=== PATIENT | female | born 1950 | race Caucasian/White ===

== ENCOUNTER 2017-12-16 11:04 | Day surgery (SDC) | payer BC ==
[~2017-12-16 11:04] MED LIST: Acetaminophen TAB* 325 MG PO PRN; Buffered Lidocaine 0.9% SYRIN* 5 ML/SYR SYRINGE INTRADERM ONE
[2017-12-16] MEDS ORDERED: fentaNYL* 50 MCG/ML 2 ML VIAL (100 MCG VIAL) ONE (11:32)
[2017-12-16] MEDS ORDERED: Midazolam* 1 MG/ML 2 ML VIAL (2 MG) ONE (11:33)
[2017-12-16 12:32] VITALS: BP 99/55
[2017-12-16] MEDS ORDERED: Cyclopentolate 1% OPTH.SOL* 2 ML BTL ONE (12:55)
[2017-12-16] MEDS ORDERED: Lidocaine 1%* 5 ML VIAL ONE (12:55)
[2017-12-16] MEDS ORDERED: Phenylephrine 2.5% OPTH.SOL* 2 ML BTL ONE (12:56)
[2017-12-16] MEDS ORDERED: Ketorolac 0.5% OPHTH (NF) 0.5 % 5 ML BTL ONE (12:56)
[2017-12-16] MEDS ORDERED: Neomycin/Polymy/Dex OPHTH.OIN* 3.5 GM ONE (12:56)
[2017-12-16] MEDS ORDERED: Tropicamide 1% OPTH.SOL* BTL ONE (12:56)
[2017-12-16] MEDS ORDERED: Tetracaine 0.5% OPTH.SOL 4 ML* 1 DROP BTL ONE (12:56)
--- NOTE | 2017-12-16 21:49 | OP ---
DATE OF OPERATION: 12/16/17 [facility] DATE OF : 50 SURGEON: Dr. Chaz Feldman. ASSOCIATE DIRECTOR OF DEVELOPMENT: None. ANESTHESIA: Topical with intravenous sedation. PRE-OP DIAGNOSIS: Cataract, right eye. POST-OP DIAGNOSIS: Cataract, right eye. OPERATIVE PROCEDURE: Phacoemulsification and cataract extraction with posterior chamber intraocular lens implant, right eye. COMPLICATIONS: None. BLOOD LOSS: None. DESCRIPTION OF PROCEDURE: The patient was brought to the operating room and received a small amount of intravenous sedation. A drop of Tetracaine was placed in her right eye. She was prepped and draped in the usual sterile fashion for ophthalmic surgery and attention was directed to the right eye where a speculum was placed. A paracentesis was created at the 11 o'clock position and 0.1 cc of 1 percent preservative-free Lidocaine was injected into the anterior chamber followed by DisCoVisc. The eye was digitally stabilized while a 2.75 mm keratome was used to create a triplanar clear corneal incision at the 9 o'clock position. A continuous curvilinear capsulorrhexis was created with a cystotome and Utrata forceps. BSS on a cannula was used to hydrodissect the lens from the capsule. Phacoemulsification was performed in a divide-and- conquer technique to create four fragments which were removed. Residual cortical material was removed with irrigation and aspiration. DisCoVisc was used to inflate the capsular bag and an AU00T0 15.5 diopter lens was folded and inserted into the capsular bag. DisCoVisc was removed using irrigation and aspiration. BSS on a cannula was used to hydrate the corneal stroma and seal the wound. At the end of the case the pupil was round and the lens was centered. The eye was of normal pressure and the wound was water tight. The speculum was removed and topical Maxitrol ointment was placed on the surface of the eye. The eye was closed, patched and shielded and the patient was sent to the recovery room in stable condition with post operative instructions and follow-up appointment given. [id number]/[facility] #: [id number] MAXIMILIANO
== END 2017-12-16 12:44 | disposition home or self-care (01) ==
LOC: OREAST 11:04
PROVIDERS: ATTEND Ophthalmology
DX: H25.11 Age-related nuclear cataract, right eye (principal); E78.5 Hyperlipidemia, unspecified; R42 Dizziness and giddiness; F41.9 Anxiety disorder, unspecified
CPT/HCPCS: A9270-GY; J2250; J3010; V2632

== ENCOUNTER 2017-12-23 07:12 | Day surgery (SDC) | payer BC ==
[2017-12-23] MEDS ORDERED: Midazolam* 1 MG/ML 2 ML VIAL (2 MG) ONE (08:12)
[2017-12-23] MEDS ORDERED: fentaNYL* 50 MCG/ML 2 ML VIAL (100 MCG VIAL) ONE (08:12)
[2017-12-23 09:01] VITALS: BP 101/52
--- NOTE | 2017-12-23 10:16 | OP ---
DATE OF OPERATION: 12/23/17 [facility] DATE OF : 50 SURGEON: Dr. Chaz Feldman. TRANSFORMATION CONSULTANT: None. ANESTHESIA: Topical with intravenous sedation. PRE-OP DIAGNOSIS: Cataract, left eye. POST-OP DIAGNOSIS: Cataract, left eye. OPERATIVE PROCEDURE: Phacoemulsification and cataract extraction with posterior chamber intraocular lens implant, left eye. COMPLICATIONS: None. BLOOD LOSS: None. DESCRIPTION OF PROCEDURE: The patient was brought to the operating room and received a small amount of intravenous sedation. A drop of Tetracaine was placed in her left eye. She was prepped and draped in the usual sterile fashion for ophthalmic surgery and attention was directed to the left eye where a speculum was placed. A paracentesis was created at the 5 o'clock position and 0.1 cc of 1 percent preservative-free Lidocaine was injected into the anterior chamber followed by DisCoVisc. The eye was digitally stabilized while a 2.75 mm keratome was used to create a triplanar clear corneal incision at the 3 o'clock position. A continuous curvilinear capsulorrhexis was created with a cystotome and Utrata forceps. BSS on a cannula was used to hydrodissect the lens from the capsule. Phacoemulsification was performed in a divide-and- conquer technique to create four fragments which were removed. Residual cortical material was removed with irrigation and aspiration. DisCoVisc was used to inflate the capsular bag and an AU00T0 15.0 diopter lens was folded and inserted into the capsular bag. DisCoVisc was removed using irrigation and aspiration. BSS on a cannula was used to hydrate the corneal stroma and seal the wound. At the end of the case the pupil was round and the lens was centered. The eye was of normal pressure and the wound was water tight. The speculum was removed and topical Maxitrol ointment was placed on the surface of the eye. The eye was closed, patched and shielded and the patient was sent to the recovery room in stable condition with post operative instructions and follow-up appointment given. [id number]/[facility] #: [id number] MAXIMILIANO
[2017-12-23] MEDS ORDERED: Neomycin/Polymy/Dex OPHTH.OIN* 3.5 GM ONE (10:38)
[2017-12-23] MEDS ORDERED: Tropicamide 1% OPTH.SOL* BTL ONE (10:38)
[2017-12-23] MEDS ORDERED: Ketorolac 0.5% OPHTH (NF) 0.5 % 5 ML BTL ONE (10:38)
[2017-12-23] MEDS ORDERED: Cyclopentolate 1% OPTH.SOL* 2 ML BTL ONE (10:38)
[2017-12-23] MEDS ORDERED: Lidocaine 1%* 5 ML VIAL ONE (10:38)
[2017-12-23] MEDS ORDERED: Phenylephrine 2.5% OPTH.SOL* 2 ML BTL ONE (10:38)
[2017-12-23] MEDS ORDERED: Tetracaine 0.5% OPTH.SOL 4 ML* 1 DROP BTL ONE (10:38)
== END 2017-12-23 09:04 | disposition home or self-care (01) ==
LOC: OREAST 07:12
PROVIDERS: ATTEND Ophthalmology
DX: H25.812 Combined forms of age-related cataract, left eye (principal); R42 Dizziness and giddiness; E78.5 Hyperlipidemia, unspecified; M19.90 Unspecified osteoarthritis, unspecified site; F41.9 Anxiety disorder, unspecified
CPT/HCPCS: A9270-GY; J2250; J3010; V2632

== ENCOUNTER 2019-05-28 06:22 | Day surgery (SDC) | payer BC ==
[~2019-05-28 06:22] MED LIST changes: -Acetaminophen TAB* 325 MG PO PRN; -Buffered Lidocaine 0.9% SYRIN* 5 ML/SYR SYRINGE INTRADERM ONE; +Buffered Lidocaine 1% SYRIN* 1 ML/SYRINGE INTRADERM ONE; +Lactated Ringers 1000 ML Bag* 1,000 ML IV SCH
[2019-05-28] MEDS ORDERED: Buffered Lidocaine 1% SYRIN* 1 ML/SYRINGE INTRADERM ONE (06:44)
[2019-05-28] MEDS ORDERED: Lidocaine 2.5%/Prilocain 2.5%* 5 GM TUBE ONE (06:44)
[2019-05-28] MEDS ORDERED: Ondansetron INJ* 2 MG/ML VIAL IV PRN (09:50)
[2019-05-28] MEDS ORDERED: Naloxone* 0.4 MG/ML 1 ML VIAL IV PRN (09:50)
[2019-05-28] MEDS ORDERED: HYDROmorphone INJ1* 1 MG/ML SYRINGE IV PRN (09:50)
[2019-05-28] MEDS ORDERED: ceFAZolin 2 GM PREMIX in ORs 2 GM/50 ML BAG ONE (13:19)
[2019-05-28] MEDS ORDERED: Lidocaine 1% INJ* 10 MG/ML 30 ML SDV ONE (13:31)
[2019-05-28] MEDS ORDERED: Bupivacaine 0.5%* 50 ML MDV VIAL ONE (13:31)
[2019-05-28] MEDS ORDERED: Propofol* 10 MG/ML 20 ML BTL ONE (13:54)
[2019-05-28] MEDS ORDERED: HYDROmorphone INJ1* 1 MG/ML SYRINGE ONE (13:54)
[2019-05-28] MEDS ORDERED: Dexamethasone IV* 4 MG/ML 1 ML (4 MG) ONE (14:06)
[2019-05-28] MEDS ORDERED: Neostigmine Methylsulfate* 1 MG/ML 10 ML VIAL (1 mg/ml) ONE (14:06)
[2019-05-28] MEDS ORDERED: EPHEDrine (Pressors)* 50 MG/ML VIAL ONE (14:21)
[2019-05-28] MEDS ORDERED: fentaNYL* 50 MCG/ML 2 ML VIAL (100 MCG VIAL) ONE (15:24)
[2019-05-28] MEDS ORDERED: Ondansetron INJ* 2 MG/ML VIAL ONE (15:24)
--- NOTE | 2019-05-28 16:17 | BRIEFOPN ---
Brief Operative/Procedure Note - Operation Details Pre-Op Diagnosis: Right breast cancer Post-Op Diagnosis: Right breast cancer Procedures: Right breast lumpectomy and sentinal lymph node biopsy Surgeon(s)/Proceduralists: Dr. Tsai. Assist: AUTUMN Zhang Anesthesia: GETA. IVF 2L Estimated Blood Loss: <25cc Findings: As above Specimen(s)/Culture(s) Description: Breast mass and lymph nodes Complications: None
[2019-05-28 17:58] VITALS: BP 137/60
--- NOTE | 2019-05-29 02:53 | OP ---
CC: Dr. Elda Killian * DATE OF OPERATION: 05/28/19 - [facility] DATE OF : 50 SERVICE: General Surgery. SURGEON: Pratibha Tsai MD. RUBBER GOODS FINISHER: AUTUMN Doyle. ANESTHESIOLOGISTS: Dr. Usama Wang and Dr. Toño Mims. ANESTHESIA: LMA anesthesia. PRE-OP DIAGNOSIS: Right breast cancer. POST-OP DIAGNOSIS: Right breast cancer. OPERATIVE PROCEDURE: Right breast lumpectomy and sentinel lymph node biopsy. SPECIMENS: Right breast mass and lumpectomy and sentinel lymph nodes #1 through 5. ESTIMATED BLOOD LOSS: Minimal, less than 10 cc. SENTINAL LYMPH NODE BIOPSY: lymphoscintigraphy INDICATIONS FOR SURGERY: Ms. Chahal is a very pleasant 68-year-old female who identified a palpable right breast mass that was biopsied and confirmed to be an invasive ductal adenocarcinoma. She therefore consented for a right breast lumpectomy and a sentinel lymph node biopsy. She understood that the risks included, but were not limited to, bleeding, infection, injury to nearby structures. DESCRIPTION OF PROCEDURE: The patient was brought back to the operating room and placed on the operating table in the supine position. Prior to coming to the operating room she had undergone lymphoscintigraphy to identify the sentinal lymph node with Radiology. Sequential compression devices were placed on bilateral lower extremities for DVT prophylaxis. Antibiotics were administered. LMA anesthesia was induced and the patient's right arm and breast were prepped and draped in normal sterile fashion. Prior to beginning the surgery, time-out was performed verifying the patient's name, date of , and the procedure to be performed. Her palpable right breast mass was noted in the upper outer quadrant, which had previously been marked in the preop holding area. An incision was made approximately 2 cm lateral from the areola and the skin was divided down to the subcutaneous tissue. A cone of tissue surrounding the breast mass was taken all the way down to the chest wall and once the lump and breast tissue was removed, it was marked with a short suture at the superior border, a medium length suture at the medial border, and a long suture at the lateral border. The mass was palpable within the lumpectomy specimen. This was carried off the table. Next, attention was turned towards the sentinel lymph node biopsy. All outer gloves were changed and new instruments were used, The lymphoscintigraphy showed that there had been at least 1 axillary lymph node; therefore, local anesthesia was infiltrated into the axilla. An incision was made over the axilla. The skin was divided down to the subcutaneous tissue. The subcutaneous tissue was divided and the axillary fat pad was entered and elevated using Allis clamps. With careful dissection, multiple sentinel lymph nodes were identified and dissected out. Felda lymph node #1 had an in situ count of 1321, the ex vivo count was 1396. Felda lymph node #2 which was adjacent to this had an in situ count of 238 and an ex vivo count of 207. Felda lymph node #3 had an in situ count of 198 and an ex vivo count of 207. Felda lymph node #4 had an in situ count of 181 and an ex vivo count of 207. The sentinel lymph node #5 had an in situ count of 13 and an ex vivo count of 3. The axillary bed count was 8. Afterwards, hemostasis was obtained in the axillary bed and attention was turned towards its closure. The subdermal layer was closed using interrupted 3- 0 Vicryl sutures and the skin was closed using a running 4-0 Monocryl suture. Next, the breast cavity was examined again. The cavity was marked using medium clips and hemostasis was obtained. The cavity was infiltrated with local anesthesia and then attention was turned towards closure. The subdermal layer was closed using interrupted 3-0 Vicryl sutures and the skin was closed using a running 4-0 Monocryl suture. Sterile dressing was then placed on all the incisions. The patient's anesthesia was reversed and she was taken to the PACU in stable condition. At the end of the case, all counts were correct and I was present during the entirety of the case. [id number]/[facility] #: [id number] MAXIMILIANO
== END 2019-05-28 18:09 | disposition home or self-care (01) ==
LOC: SDS 06:22
PROVIDERS: ATTEND Surgery
DX: C50.411 Malignant neoplasm of upper-outer quadrant of right female breast (principal)
CPT/HCPCS: 78195; 88307; 88342; A9270-GY; A9541; J0690; J1100; J1170; J2405; J2704; J2710; J3010; J3490